=== PATIENT | male | born 1945 | race Caucasian/White ===

== ENCOUNTER 2018-06-25 07:36 | Outpatient (CLI) | payer MEDICARE, OTHER, SELFPAY ==
[2018-06-25] VITALS (9 sets, daily range): BP systolic 112–177; BP diastolic 72–108; PULSE 63–79; RESP 16–18; TEMP 36.4; O2SAT 93–98
--- NOTE | 2018-06-25 08:31 | PM.PROC.1 ---
Procedures Date/Time Date of procedure: 06/25/18 Time of procedure: 08:31 General Procedure description: PROVIDER: Stewart Toledo DO Operative Note PREOP DIAGNOSIS 1. HNP WITH RADICULAR FEATURES, 2. MULTILEVEL CENTRAL STENOSIS, POST OP DIAGNOSIS 1. HNP WITH RADICULAR FEATURES, 2. MULTILEVEL CENTRAL STENOSIS PROCEDURES 1. FLUORSCOPICALLY GUIDED CONTRAST CONTROLLED INTERLAMINAR EPIDURAL STEROID INJECTION -L4/5 PHYSICIAN: Stewart Toledo DO INDICATIONs: Clay is referred by Dr. Roca for treatment of Bilateral Foraminal Stenosis R>L LE symptoms. FINDINGS Multilevel Central Spinal Stenosis with Nerve Root Compression DESCRIPTION OF PROCEDURE Fluoroscopically guided, contrast-controlled L4/5 translaminar epidural steroid injection. Following denial of allergy and review of potential side effects and complications, including, but not necessarily limited to, infection, allergic reaction, local tissue breakdown, temporary as well as permanent nerve injury, paralysis, stroke and possible , the patient indicated that the patient understood and agreed to proceed. An informed consent document was signed by the patient, witnessed by a nurse, and placed in the patient's chart. Additionally, other treatment options including modalities, medications, and physical therapy were reviewed with the patient. After review of previous anaesthesic history and IV conscious sedation the patient was deemed safe to proceed with todays procedure with IV conscious sedation as ASA class II designation. Safety time-out was performed to confirm patient ID, procedure to be performed and site of procedure. IV sedation was accomplished with a combination of 3mg was administered by the RN after DO order, titrated to patient comfort during the course of the procedure while the patient remained responsive to all verbal commands In the prone position, following sterile prep and drape of the lumbar region, the L4/5 translaminar space was identified fluoroscopically. The skin was anesthetized via a 25-gauge, 1.5-inch needle with 1% lidocaine solution. At this point, a 22-gauge short bevel spinal needle was atraumatically introduced and advanced under fluoroscopic guidance into the region of the L4/5 translaminar space. Depth was confirmed on lateral view. Radiological data, including multiple fluoroscopic views of the lumbar spine, reveal a spinal needle at the L4/5 translaminar space. Lateral views then show placement of the needle in the epidural space. Subsequent views show contrast material flowing superiorly and inferiorly in the epidural space. No vascular or intrathecal uptake is observed. At this point, using loss of resistance technique with saline and air, the epidural space was entered. This was confirmed following negative aspiration with injection of approximately 1.5 cc of Isovue 200, showing excellent epidural flow without vascular or intrathecal uptake. At this point, 1 cc of 1% lidocaine solution combined with 3 cc or 20 mg of dexamethasone and 80mg Depo medrol was injected without incident. The patient tolerated the procedure well without signs or symptoms of complications prior to transfer to the recovery area continued monitoring without incident. The patient was then transferred to the recovery area where they were observed for an appropriate period of time after the injection. The patient reported a VAS score of 6 prior to the procedure and a post-procedure VAS of 0. Total Fluoroscopy Time: 11.8 seconds, 8.99 mGy Total Conscious Sedation Time: 24min POST OP INSTRUCTIONS The patient was provided a Pain Log to continue to record their response to the target-specific procedure prior to follow-up visit with their referring physician. Additionally, specific post-injection care instructions and a contact number to our office were provided if concerns arise regarding possible complications associated with the procedure are suspected. Stewart Toledo DO Complications: none
--- NOTE | 2018-06-25 08:35 | P.PCN_ITS ---
Procedures Date/Time Date of procedure: 06/25/18 Time of procedure: 08:31 General Procedure description: PROVIDER: Stewart Toldeo DO Operative Note PREOP DIAGNOSIS 1. HNP WITH RADICULAR FEATURES, 2. MULTILEVEL CENTRAL STENOSIS, POST OP DIAGNOSIS 1. HNP WITH RADICULAR FEATURES, 2. MULTILEVEL CENTRAL STENOSIS PROCEDURES 1. FLUORSCOPICALLY GUIDED CONTRAST CONTROLLED INTERLAMINAR EPIDURAL STEROID INJECTION -L4/5 PHYSICIAN: Stewart Toledo DO INDICATIONs: Clay is referred by Dr. Roca for treatment of Bilateral Foraminal Stenosis R>L LE symptoms. FINDINGS Multilevel Central Spinal Stenosis with Nerve Root Compression DESCRIPTION OF PROCEDURE Fluoroscopically guided, contrast-controlled L4/5 translaminar epidural steroid injection. Following denial of allergy and review of potential side effects and complications, including, but not necessarily limited to, infection, allergic reaction, local tissue breakdown, temporary as well as permanent nerve injury, paralysis, stroke and possible , the patient indicated that the patient understood and agreed to proceed. An informed consent document was signed by the patient, witnessed by a nurse, and placed in the patient's chart. Additionally, other treatment options including modalities, medications, and physical therapy were reviewed with the patient. After review of previous anaesthesic history and IV conscious sedation the patient was deemed safe to proceed with todays procedure with IV conscious sedation as ASA class II designation. Safety time-out was performed to confirm patient ID, procedure to be performed and site of procedure. IV sedation was accomplished with a combination of 3mg was administered by the RN after DO order , titrated to patient comfort during the course of the procedure while the patient remained responsive to all verbal commands In the prone position, following sterile prep and drape of the lumbar region, the L4/5 translaminar space was identified fluoroscopically. The skin was anesthetized via a 25-gauge, 1.5-inch needle with 1% lidocaine solution. At this point, a 22-gauge short bevel spinal needle was atraumatically introduced and advanced under fluoroscopic guidance into the region of the L4/5 translaminar space. Depth was confirmed on lateral view. Radiological data, including multiple fluoroscopic views of the lumbar spine, reveal a spinal needle at the L4/5 translaminar space. Lateral views then show placement of the needle in the epidural space. Subsequent views show contrast material flowing superiorly and inferiorly in the epidural space. No vascular or intrathecal uptake is observed. At this point, using loss of resistance technique with saline and air, the epidural space was entered. This was confirmed following negative aspiration with injection of approximately 1.5 cc of Isovue 200, showing excellent epidural flow without vascular or intrathecal uptake. At this point, 1 cc of 1 % lidocaine solution combined with 3 cc or 20 mg of dexamethasone and 80mg Depo medrol was injected without incident. The patient tolerated the procedure well without signs or symptoms of complications prior to transfer to the recovery area continued monitoring without incident. The patient was then transferred to the recovery area where they were observed for an appropriate period of time after the injection. The patient reported a VAS score of 6 prior to the procedure and a post- procedure VAS of 0. Total Fluoroscopy Time: 11.8 seconds, 8.99 mGy Total Conscious Sedation Time: 24min POST OP INSTRUCTIONS The patient was provided a Pain Log to continue to record their response to the target-specific procedure prior to follow-up visit with their referring physician. Additionally, specific post-injection care instructions and a contact number to our office were provided if concerns arise regarding possible complications associated with the procedure are suspected. Stewart Toledo DO Complications: none
[2018-06-25] MEDS: MIDAZOLAM 5 MG/5 ML VIAL IV (08:59)
[2018-06-25] MEDS: LIDOCAINE 1% 20 ML INJ 5 ML INJ (09:03)
[2018-06-25] MEDS: IOPAMIDOL 15 ML VIAL 3 ML INJ (09:03)
[2018-06-25] MEDS: DEXAMETHASONE 10 MG/ML VIAL 30 MG INJ (09:04)
--- NOTE | 2018-06-25 09:09 | PC.NURSE ---
ASSISTING PT OFF TABLE AND TRANSPORTING PT TO POST PROC AREA IN STABLE CONDITION
--- NOTE | 2018-06-25 09:13 | PM.PROC.1 ---
Procedures Date/Time Date of procedure: 06/25/18 Time of procedure: 09:13 General Procedure description: PREOP DIAGNOSIS 1. CERVICAL STENOSIS, 2. CERVICAL HNP WITH UPPER EXTREMITY RADICULAR FEATURES, POST OP DIAGNOSIS 1. CERVICAL STENOSIS, 2. CERVICAL HNP WITH UPPER EXTREMITY RADICULAR FEATURES, PROCEDURES 1. FLUORSCOPICALLY GUIDED CONTRAST CONTROLLED INTERLAMINAR EPIDURAL STEROID INJECTION - C6/7 TL SOFIA PHYSICIAN: Stewart Toledo, DO INDICATIONS Clay is referred by Dr. Matias for treatment of Cervical HNP with Upper Extremity Paresthesias. FINDINGS Cervical Stenosis due to disc deterioration and nerve root irritation and nerve root irritation DESCRIPTION OF PROCEDURE Fluoroscopically guided, contrast-controlled C6/7 translaminar epidural steroid injection with conscious sedation. Following denial of allergy and review of potential side effects and complications, including, but not necessarily limited to, infection, allergic reaction, local tissue breakdown, temporary as well as permanent nerve injury, stroke, paralysis, and possible , the patient indicated that patient understood and agreed to proceed. An informed consent document was signed by the patient, witnessed by a nurse, and placed in the patient's chart. Additionally, other treatment options including modalities, medications, and physical therapy were reviewed with the patient. After review of previous anaesthesic history and IV conscious sedation the patient was deemed safe to proceed with todays procedure with IV conscious sedation as ASA class II designation. Safety time-out was performed to confirm patient ID, procedure to be performed and site of procedure. IV sedation was accomplished with a combination of 3mg of Versed administered by the RN after DO order, titrated to patient comfort during the course of the procedure while the patient remained responsive to all verbal commands. In the prone position, following sterile prep and drape of the cervical region, the C6/7 translaminar space was identified fluoroscopically. The skin was anesthetized via a 25-gauge 1.5-inch needle with 1% lidocaine solution. At this point, a 25-gauge, 2.5-inch short bevel spinal needle was atraumatically introduced and advanced under fluoroscopic guidance into epidural space at the C6/7 translaminar space. Depth was confirmed on lateral view. Radiological data, including multiple fluoroscopic views of the cervical spine, reveal a spinal needle at the C6/7 translaminar space. Lateral views then show placement of the needle in the epidural space. Subsequent views show contrast material flowing superiorly and inferiorly in the epidural space. DSA fluoroscopy with live contrast injection, once again, confirmed no vascular or intrathecal uptake. At this point, using loss of resistance technique with saline and air, the epidural space was entered. Following negative aspiration, injection of approximately 1.5 cc of Isovue-200 with live fluoroscopy in the AP view confirmed epidural flow in the epidural space without vascular or intrathecal uptake observed. Subsequently, a test dose of 1 cc of 1% lidocaine solution was injected and patient was observed for two minutes without signs or symptoms of complications, including abdominal pain, shortness of breath, bilateral upper or lower extremity weakness, nausea and vomiting, prior to steroid injection. At this point, 3 cc or 30 mg of dexamethasone was then injected without incident. The patient tolerated the procedure well without signs or symptoms of complications prior to being transferred to the recovery area for further monitoring, The patient was then transferred to the recovery area where they were observed for an appropriate period of time after the injection. The patient reported a VAS score of 6 prior to the procedure and a post-procedure VAS of 0. Total Fluoroscopy Time: 37.0 seconds Total Conscious Time: 24min POST OP INSTRUCTIONS The patient was provided a Pain Log to continue to record their response to the target-specific procedure prior to follow-up visit with the referring provider. Additionally, specific post-injection care instructions and a contact number to our office were provided if concerns arise regarding possible complications associated with the procedure are suspected. Stewart Toledo, Complications: none
--- NOTE | 2018-06-25 09:32 | PC.NURSE ---
Received pt after procedure he was awake and able to move from W/C to chair with standby assist. Resumed monitoring.
--- NOTE | 2018-06-25 09:32 | DI.RAD.S_ITS ---
PROCEDURE: PAIN C/T INTERLAMINAR INJECT INDICATIONS: SPINAL STENOSIS FINDINGS: Fluoroscopic spot filming was performed to verify placement of spinal needles at the C6-C7 levels, right paramedian posterior interlaminar epidural injection for steroid administration, as labeled on the films. Appropriate location(s) of the needle tip(s) was confirmed by injection of iodinated contrast. IMPRESSION: Successful interlaminar dorsal epidural steroid injection, C6-C7 level. Dictated by: Roberto Day M.D. on 06/25/2018 at 15:11 Approved by: Roberto Day M.D. on 06/25/2018 at 15:13
--- NOTE | 2018-06-25 09:40 | PC.NURSE ---
pt reports still feeling a little dizzy, will stay until he feels a little more together. Needs to call his ride and then will travel to [place] afterwards.
== END 2018-06-25 10:14 ==
LOC: RAD 07:40
PROVIDERS: PCP Ophthalmology; Visit Provider Physical Medicine & Rehabilitation
DX: M48.02 Spinal stenosis, cervical region (principal); M50.123 Cervical disc disorder at C6-C7 level with radiculopathy
CPT/HCPCS: 62321; 99152; J1100; J2250

== ENCOUNTER → 2023-11-28 08:47 | Outpatient (CLI) | payer OTHER, MEDICARE, SELFPAY ==
--- NOTE | 2023-11-28 08:51 | DI.RAD.S_ITS ---
PROCEDURE: XR LUMBAR SPINE MIN 4V INDICATIONS: LOW BACK PAIN TECHNIQUE: 5 views of the lumbar spine were acquired, including bilateral oblique views. COMPARISON: None. FINDINGS: Bones: 5 nonrib-bearing vertebrae are present. Visualized spinal cord stimulator. The no curvature of the lumbar spine. Straightening of the normal lumbar lordosis. There is multilevel facet arthropathy, worse at L4-5 and L5-S1. Multilevel disc height loss with degenerative endplate changes and spurring is present. Diffusely decreased osseous mineralization. No vertebral body compression fractures. No suspicious bony lesions. Soft tissues: Overlying bowel gas pattern is normal. No suspicious soft tissue calcifications. Atherosclerotic vascular calcifications. Partially Oblique images: No definite pars defects. IMPRESSION: Moderate to severe multilevel degenerative changes of the lumbar spine. Dictated by: Santos Luevano M.D. on 11/28/2023 at 10:30 Approved by: Santos Luevano M.D. on 11/28/2023 at 10:31
--- NOTE | 2023-11-28 08:51 | DI.RAD.S_ITS ---
PROCEDURE: XR HIP W PEL IF DONE RT 2V INDICATIONS: RIGHT HIP PAIN TECHNIQUE: AP pelvis with lateral view(s) of the right hip(s). COMPARISON: None. FINDINGS: Bones: No fractures or dislocations. Mild degenerative changes of the bilateral hips with joint space narrowing and marginal spurring. Pelvic ring appears intact. No suspicious bony lesions. Soft tissues: The visualized bowel gas pattern is normal. No suspicious soft tissue calcifications. Atherosclerotic vascular calcifications. Partially visualized spinal cord stimulator. IMPRESSION: No acute osseous abnormalities. Mild degenerative changes of the bilateral hips. Dictated by: Santos Luevano M.D. on 11/28/2023 at 10:31 Approved by: Santos Luevano M.D. on 11/28/2023 at 10:32
== END ==
PROVIDERS: PCP Internal Medicine; Referring Provider Anesthesiology; Visit Provider Anesthesiology
DX: M47.816 Spondylosis without myelopathy or radiculopathy, lumbar region (principal); M47.817 Spondylosis without myelopathy or radiculopathy, lumbosacral region; M54.50 Low back pain, unspecified; R10.30 Lower abdominal pain, unspecified; M25.551 Pain in right hip
CPT/HCPCS: 72110; 73503

== ENCOUNTER → 2023-12-02 10:44 | Outpatient (CLI) | payer OTHER, MEDICARE, SELFPAY ==
--- NOTE | 2023-12-02 10:47 | DI.CT.S_ITS ---
PROCEDURE: CT ABDOMEN PELVIS WO CON INDICATIONS: Right inguinal pain s/p hernia repair TECHNIQUE: Axial sections were acquired from the lung bases to the pubic symphysis. Coronal and sagittal reformats were performed. For radiation dose reduction, the following was used: automated exposure control, adjustment of mA and/or kV according to patient size. COMPARISON: None. FINDINGS: Image quality: Diagnostic. Lower Chest: No significant findings. URINARY: Right Kidney: No stones or hydronephrosis. Right Ureter: No hydroureter. Left Kidney: Absent. Left Ureter: Absent. Bladder: Normal wall thickness. No stones. ABDOMEN: Liver: No contour-deforming solid mass. Gallbladder: Cholelithiasis without wall thickening or adjacent fat stranding to suggest acute cholecystitis. Biliary ducts: No biliary dilation. Pancreas: Solid appearance of the pancreatic tail, with loss of a lobulated contour (series 2, image 21). Spleen: Absent. Adrenal Glands: No adrenal nodules. Stomach and Bowel: Normal colonic caliber, without significant wall thickening. Colonic diverticulosis without evidence of diverticulitis. Fecal debris within the small bowel. Peritoneum: No abnormal intraperitoneal fluid. No free air. Ventral Wall: Prior hernia repair, without recurrence at the ventral wall. Abdominal Nodes: No enlarged retroperitoneal or mesenteric lymph nodes. Vessels: Aorta and inferior vena cava are normal in size. PELVIS: Pelvic Organs: Unremarkable. Pelvic Nodes: Unremarkable. Miscellaneous: Left inguinal hernia. The neck measures 1.2 centimeters and the sac measures 2.6 x 1.8 centimeter. The sac contains fat. Bones: Degenerative disc disease of the lumbar spine. IMPRESSION: Small left inguinal hernia containing fat. Solid appearance of the pancreatic tail, without associated ductal dilation. Differential includes normal variant, less likely malignancy. Consider CT or MRI for confirmation (pancreatic mass protocol). Left nephrectomy and splenectomy. Fecal debris within the small-bowel, usually indicating small intestinal bacterial overgrowth versus slow transit. Dictated by: Bill Reilly M.D. on 12/02/2023 at 14:03 Approved by: Bill Reilly M.D. on 12/02/2023 at 14:09
== END ==
PROVIDERS: PCP Internal Medicine; Referring Provider Anesthesiology; Visit Provider Anesthesiology
DX: G57.90 Unspecified mononeuropathy of unspecified lower limb (principal); K80.20 Calculus of gallbladder without cholecystitis without obstruction; K57.90 Diverticulosis of intestine, part unspecified, without perforation or abscess without bleeding; K40.90 Unilateral inguinal hernia, without obstruction or gangrene, not specified as recurrent; Z90.81 Acquired absence of spleen; Z90.5 Acquired absence of kidney
CPT/HCPCS: 74176

== ENCOUNTER 2024-02-25 06:35 | Day surgery (SDC) | payer OTHER, MEDICARE, SELFPAY ==
[2024-02-21 16:14] VITALS: BMI 30.2
[2024-02-25] VITALS (7 sets, daily range): BP systolic 136–185; BP diastolic 63–80; PULSE 61–74; RESP 16–20; TEMP 36.3–36.6; O2SAT 95–100; BMI 29.1
--- NOTE | 2024-02-25 | PATH_ITS ---
[facility] Accession Number: [id number] No. of containers..02 Tissue . 01 Material submitted: . PART A: body - PUTATIVE ILIOHYPOGASTRIC NERVE PART B: body - PUTATIVE ILIOINGUINAL NERVE . 01 Diagnosis: A. PUTATIVE ILIOHYPOGASTRIC NERVE, BIOPSY: Fragment of nerve without significant diagnostic abnormalities. . B. 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 Negative for malignancy. MRV 02/28/2024 1647 Local . 01 Electronically signed: . Shahzad Arnold MD, Pathologist NPI- [id number] . 01 Gross description: . A. Received in formalin with two patient identifiers and putative iliohypogastric nerve, is a simeon, thin soft tissue fragment, 1.2 cm in length by 0.1 cm in diameter. Inked blue and submitted intact in A1, to be cut at embedding. B. Received in formalin with two patient identifiers and putative ilioinguinal nerve, is a simeon soft tissue fragment, 0.7 x 0.2 x 0.1 cm. Inked green and submitted intact in B1, to be cut at embedding. . Specimen processed per Dr. Victoria. ([id number]) /MRV 02/26/2024 1813 Local . 01 Pathologist provided ICD-10: G57.60 . 01 CPT . 262984, [id number] Specimen Comment: A courtesy copy of this report has been sent to [phone] Performed at: [address] [address], [place], [place] [id number] MD Juan Victoria MD Phone: [phone]
[2024-02-25] MEDS: LACTATED RINGERS 1,000 ML 42 ML IV (07:43)
[2024-02-25] MEDS: ACETAMINOPHEN 325 MG TABLET 650 MG PO (07:52)
--- NOTE | 2024-02-25 08:32 | PM.PREOP ---
Pre-operative Note COVID-19 COVID-19 status: Not tested Interval Note History & Physical reviewed/Exam performed by Physician: Yes Changes to H&P: No ASA Class (for procedural sedation): II
--- NOTE | 2024-02-25 09:45 | SUR.OPER ---
new instrumentation required
--- NOTE | 2024-02-25 09:49 | SUR.OPER ---
Supine on padded OR bed, head on pillow, arms secured on padded arm boards at <90 degrees abduction, legs uncrossed, safety belt at thigh, tape over blanket over lower legs.
[2024-02-25] MEDS: LIDOCAINE 1% 20 ML INJ (09:57)
[2024-02-25] MEDS: BUPIVACAINE 0.25% (PF) 30 ML, EPINEPHrine 0.15 MG INJ (10:11)
--- NOTE | 2024-02-25 10:39 | PM.OP.1 ---
Operative Date/Time/Diagnoses Date of procedure: 02/25/24 Time of procedure: 10:39 Pre-op diagnosis: Right inguinodynia Post-op diagnosis: same Procedure & Clinicians Procedure: Right double neurectomy Same procedure as scheduled: Yes Surgeon: Ramirez Arnett Furniture Mover Helper: Ayden Chua Anesthesia Type: General Operative Notes Procedure in detail: The patient is a 79-year-old man who presented with right inguinodynia following an open right inguinal hernia repair proximally 1 year prior. He was consented for a right groin exploration and neurectomy. The patient was brought to the operating room, placed on the table in the supine position and general anesthesia was induced. The right groin was prepped and draped in the usual fashion and a time-out was performed. We made a 7 cm incision along the lateral aspect of the prior surgical scar and extending slightly more lateral and superior than the prior surgical scar. We dissected down to the external oblique. We open the external oblique with a 15 blade scalpel and encountered the mesh immediately deep to the fascia. We dissected in the plane between the mesh in the external oblique and found a putative iliohypogastric nerve which was injected with lidocaine and then transected sharply with Metzenbaum scissors and sent as ?putative iliohypogastric nerve?. We then divided the mesh sharply with a 15 blade scalpel and dissected deep surface of the mesh and the underlying muscle tissue. The tails of the mesh extended quite far laterally. After some dissection we found a putative ileoinguinal nerve rising through the muscle fibers and adhered to under surface of the mesh. We injected some lidocaine into the proximal portion of the nerve excised a small segment sharply with Metzenbaum scissors and sent it as ?putative ilioinguinal nerve?. We then injected additional Marcaine into the tissue around both of the nerve stumps. We closed the fascia with 2 interrupted 3-0 Prolene sutures. We then closed the external oblique with a few additional interrupted Prolene sutures and a running 3-0 Vicryl stitch. We closed the Capri's fascia with 3 interrupted 3-0 Vicryl sutures and the skin was closed in layers using multiple interrupted 3-0 Vicryl dermal sutures and a running 4-0 Monocryl subcuticular stitch. EBL: 5 mL Specimens: Putative iliohypogastric nerve, putative ilioinguinal nerve Ayden LARSON provided assistance with exposure, retraction and closure of incisions. Post-operative Condition: stable Disposition: PACU
== END 2024-02-25 11:32 | disposition home or self-care (01) ==
PROVIDERS: PCP Internal Medicine; Referring Provider Surgery; Visit Provider Surgery
PROC: (CPT 64772; principal; 2024-02-25 09:15)
DX: D36.16 Benign neoplasm of peripheral nerves and autonomic nervous system of pelvis (principal); I48.91 Unspecified atrial fibrillation
CPT/HCPCS: 64772; J0171; J2405; J2704; J3010